=== PATIENT | female | born 1940 | race Caucasian/White ===

== ENCOUNTER → 2020-08-31 06:39 | Outpatient (CLI) | payer MEDICARE, SELFPAY ==
[2020-08-26 08:31] VITALS: BMI 36.2
--- NOTE | 2020-08-31 06:42 | ECHOCS_ITS ---
Reason For Study: DYSPNEA Procedure This was a 2D Doppler, Color Flow transthoracic echocardiogram. The study was technically difficult. Contrast injection was performed. Exam performed in department. Left Ventricle Normal LV size. Left ventricular systolic function is normal. The estimated ejection fraction is 50 %. Transmitral and pulmonary venous doppler flow suggestive of impaired relaxation of left ventricle. Mid-anteroseptal : Hypokinetic. Basal inferoseptal: Hypokinetic. The rest of the wall segments are normal. Right Ventricle Normal RV size. Normal systolic function. Atria Normal left atrium. Normal right atrium. Mitral Valve Normal mitral valve. Tricuspid Valve The tricuspid valve is not well visualized. Aortic Valve Trisinus/trileaflet aortic valve. Pulmonic Valve The pulmonic valve is not well visualized. Great Vessels Normal aortic root. Pericardium/Pleural No pericardial effusion. Medication Diluted definity 4.5ml given slow IV push to enhance endocardial definition. MMode/2D Measurements & Calculations LVIDd: 4.0 cm IVSd: 1.1 cm LVOT diam: 1.9 cm LVIDs: 2.8 cm LVPWd: 1.1 cm RVDd: 3.2 cm FS: 30.4 % LVOT area: 3.0 cm2 Ao root diam: 3.1 cm LAV(MOD-bp): 29.8 ml LVAd ap4: 28.7 cm2 LAV(MOD-bp) Indexed: 16.1 ml/m2 EDV(MOD-sp4): 84.0 ml LAV(MOD-sp2): 34.5 ml EDV(sp4-el): 93.4 ml LAV(MOD-sp4): 24.0 ml LVAs ap4: 18.6 cm2 ESV(MOD-sp4): 44.1 ml ESV(sp4-el): 47.6 ml EF(MOD-sp4): 47.5 % EF(sp4-el): 49.1 % SV(MOD-sp4): 39.9 ml SV(sp4-el): 45.8 ml LA A4 area: 10.6 cm2 LA dimension(2D): 3.3 cm RA A4 area: 7.3 cm2 Time Measurements MV dec time: 0.19 sec Doppler Measurements & Calculations MV E max israel: 77.2 cm/sec Lat Peak E' [place]: 3.0 cm/sec Med Peak E' [place]: 3.2 cm/sec MV A max israel: 121.2 cm/sec E/E' lat: 26.0 E/E' med: 23.9 MV E/A: 0.64 MV V2 max: 132.0 cm/sec Ao V2 max: 212.3 cm/sec LV V1 max: 100.0 cm/sec MV max P.0 mmHg Ao max P.0 mmHg LV V1 max P.0 mmHg MV V2 mean: 77.0 cm/sec Ao V2 mean: 151.6 cm/sec LV V1 mean P.1 mmHg MV mean P.7 mmHg Ao mean P.2 mmHg LV V1 mean: 67.9 cm/sec MV V2 VTI: 29.9 cm Ao V2 VTI: 38.9 cm LV V1 VTI: 18.9 cm MVA(VTI): 1.9 cm2 CEZAR(I,D): 1.4 cm2 CEZAR(V,D): 1.4 cm2 SV(LVOT): 55.9 ml TR max israel: 263.7 cm/sec MV P1/2t-pr_phl: 115.5 msec TR max P.8 mmHg ECHO/Echo Complete W/ Contrast Interpretation Summary Left ventricular systolic function is normal. The estimated ejection fraction is 50 %. Normal LV size. Transmitral and pulmonary venous doppler flow suggestive of impaired relaxation of left ventricle Contrast injection was performed. Ordering Physician: Eliot Choi Referring Physician: DENIZ MCCALLUM Performed By: Milla Guzman, SALINA, RVT
--- NOTE | 2020-08-31 17:54 | STRESSREP_ITS ---
Stress Test Report Pharmacologic myocardial perfusion stress test. 79-year-old lady with a history of left bundle branch block for left hip surgery. Stress protocol: Resting EKG demonstrates normal sinus rhythm with a rate of 78 bpm left bundle branch block is noted resting blood pressure is 142/82 mmHg. 0.4 mg of regadenoson was infused per usual protocol followed by rapid intravenous saline flush injection continuous EKG monitoring was performed. The maximum heart rate attained was 104 bpm which was 72% of max impacted heart rate the maximum workl oad was 1 metabolic equivalent. At rest there were no ST or T wave changes noted to suggest abnormal flow reserve. At peak infusion no ST changes were noted to suggest abnormal flow reserve. The final blood pressure was 138/78 mmHg. Myocardial perfusion protocol. 10.6 mCi of technetium 99m sestamibi was injected at rest. 0.4 mg of regadenoson was infused per usual protocol. At peak infusion 33.0 mCi of technetium 99m sestamibi was infused per protocol. Stress and resting images were reconstructed and compared in the short axis vertical long and horizontal long axis. Gated images were also obtained per Diffusion SPECT analysis: Review of the stress images demonstrate normal uptake of tracer noted in all areas of the myocardium. The resting images similarly demonstrate normal uptake of tracer noted in all areas of the myocardium. No areas of reversibility are noted to suggest ischemia no previous infarct is noted. Gated SPECT analysis: The gated ejection fraction is noted to be 56%. Conclusion: Normal pharmacologic myocardial perfusion stress test. Preserved ejection fraction.
== END ==
PROVIDERS: PCP Family Medicine; Referring Provider Internal Medicine Cardiovascular Disease; Visit Provider Internal Medicine Cardiovascular Disease
DX: R06.00 Dyspnea, unspecified (principal); R06.02 Shortness of breath
CPT/HCPCS: 78452; 93017; 93306; A9500; Q9957; A4216; C8929; J2785

== ENCOUNTER → 2021-04-19 09:19 | Outpatient (CLI) | payer MEDICARE, SELFPAY ==
[2021-04-19 10:05] LABS: Absolute Lymphocyte Count 1.84 X10^3/uL (0.83-4.51); Absolute Neutrophil Count 4.6 X10^3/uL (2.0-7.7); Basophil# 0.06 X10^3/uL; Basophil% 0.8 % (0-1); Eosinophil# 0.17 X10^3/uL; Eosinophils% 2.3 % (0-5); Hematocrit 42.6 % (37-47); Hemoglobin 14.4 g/dL (12.0-15.0); Lymphocyte # 1.84 X10^3/ul (0.83-4.51); Mean Corp Hgb Conc 33.8 g/dL (32-36); Mean Corpuscular Hgb 28.5 pg (27.0-32.0); Mean Corpuscular Volume 84.4 fL (81-99); Mean Platelet Vol. 9.2 fl (6.2-12.0); Monocyte# 0.63 X10^3/uL; Monocyte% 8.6 % (0-10); NRBC Flagged by Analyzer 0 % (0-5); Neutrophil # 4.64 X10^3/uL (2.7-7.7); Neutrophil % 63.2 % (47-70); Platelet Count 400 K/mm3 (150-450); RBC Distribution Width CV 12.6 % (11.6-14.6); RBC Distribution Width SD 38.4 fl (35.1-43.9); Red Blood Count 5.05 M/mm3 (4.2-5.4); White Blood Count 7.4 K/mm3 (4.4-11.0)
[2021-04-19 10:29] LABS: BNP,B-Type NATRIURETIC PEPTIDE 49.3 pg/mL (0-100)
[2021-04-19 10:37] LABS: Anion Gap 8 (5-15); BUN 17 mg/dL (7-18); BUN/Creat Ratio 21.2 RATIO (10-20); Calcium,Total 9.9 mg/dL (8.5-10.1); Chloride 107 mmol/L (98-107); EST Glomerular Filtration Rate 74 mL/min (>60); Est Glom Filt Rate - Afr Amer 89 mL/min (>60); Glucose 107 mg/dL (74-106); Potassium 3.9 mmol/L (3.5-5.1); Sodium Level 138 mmol/L (136-145)
== END ==
PROVIDERS: PCP Family Medicine; Referring Provider Nurse Practitioner Family; Visit Provider Nurse Practitioner Family
DX: I10 Essential (primary) hypertension (principal); R07.9 Chest pain, unspecified; R06.02 Shortness of breath
CPT/HCPCS: 36415; 80048; 83880; 85025

== ENCOUNTER → 2021-05-13 12:31 | Outpatient (CLI) | payer MEDICARE, SELFPAY ==
--- NOTE | 2021-05-13 12:34 | CT_ITS ---
EXAM: CT CHEST WITH INTRAVENOUS CONTRAST CLINICAL INDICATION: Chest pain -- OVER READ ONLY TECHNIQUE: Helically acquired images were obtained of the chest with intravenous contrast. This CT exam was performed using one or more of the following dose reduction techniques: automated exposure control, adjustment of the mA and/or kV according to patient size, and/or use of iterative reconstruction technique. This report was created using [employer] report generation technology. CONTRAST: IV 50mL [id number] COMPARISON: None. FINDINGS: LUNGS AND PLEURAL SPACES: 4 mm noncalcified nodule in the anterior right lower lobe on image 12 of series 4. Fleischner Society Guidelines (MacMahon, et al. Radiology 2017; 284(1):228-43) suggest the following. For low-risk patients, no follow-up is necessary. For high-risk patients (smoking history or other known risk factors) an optional chest CT at 12 months could be performed. No pleural effusion or thickening. No pneumothorax. HEART: Cardiac portion of the exam read by cardiology service. This report represents Overread noncardiac portion the exam. MEDIASTINUM: Unremarkable. No mediastinal or hilar adenopathy. Esophagus is unremarkable. No hiatal hernia. THYROID: Unremarkable. No thyroid lesions. BONES/JOINTS: Unremarkable. No suspicious lytic or blastic abnormality. VASCULATURE: Unremarkable. Thoracic aorta is non-dilated. No thoracic aortic dissection. No obvious central pulmonary embolism although this study was not performed with the pulmonary embolism protocol. CT/Limited Chest CT w/CCTA IMPRESSION: 4 mm noncalcified nodule in the anterior right lower lobe on image 12 of series 4. Fleischner Society Guidelines (MacMahon, et al. Radiology 2017; 284(1):228-43) suggest the following. For low-risk patients, no follow-up is necessary. For high-risk patients (smoking history or other known risk factors) an optional chest CT at 12 months could be performed. Electronically Signed: Saul Raphael MD ([place]) at 16:19 EST , Service support ,
[2021-05-13 12:43] VITALS: BP 167/80; PULSE 89; RESP 18; TEMP 36.8; O2SAT 100; BMI 32.0
[2021-05-13 13:00] VITALS: BP 148/73; PULSE 79
[2021-05-13] MEDS: Metoprolol Tartrate 5 MG/5 ML Vial IV ×2 (13:00→13:16)
[2021-05-13 13:06] VITALS: BP 137/66; PULSE 63; RESP 14; O2SAT 97
[2021-05-13 13:15] VITALS: BP 137/69; PULSE 69
[2021-05-13] MEDS: Nitroglycerin SL (ED/IMG/CATH) 0.4 MG TABLET SL (13:15)
[2021-05-13 13:16] VITALS: BP 137/69; PULSE 71
[2021-05-13 13:28] VITALS: BP 109/48; PULSE 63; RESP 16; O2SAT 97
--- NOTE | 2021-05-13 13:33 | NURSING ---
PT DENIES DIZZINESS. AMBULATES WITHOUT DIFFICULTY TO WAITING ROOM TO MEET . DENIES QUESTIONS OR FURTHER NEEDS.
--- NOTE | 2021-05-16 08:54 | CCTA_ITS ---
CCTA w/Cont Coronary Arteries Date of Study:: 05/13/21 Chest pain After procedure was explained to the patient informed consent was obtained. The patient was then brought to the radiology suite. Antecubital IV was placed. Appropriate gating was established. 100 cc of intravenous contrast was then injected in 0.625 mm slices were obtained and reconstructed. Motion artifact was noted to be minimal. LEFT MAIN CORONARY ARTERY: The above arose from the left coronary cusp and was noted to be normal and free of any calcification [] LEFT ANTERIOR DESCENDING CORONARY ARTERY: The above was a large vessel which coursed and wrapped around the apex of the left ventricle without any significant stenosis noted [] LEFT CIRCUMFLEX CORONARY ARTERY: Mild disease was noted proximally but no high- grade stenosis was noted. Motion artifact was noted in this vessel. [] RIGHT CORONARY ARTERY: Large dominant vessel was noted with no high-grade stenosis present. [] CT angio gram of the chest performed with no evidence of high-grade stenosis present. No obvious coronary calcification noted.
== END ==
PROVIDERS: PCP Family Medicine; Referring Provider Nurse Practitioner Family; Visit Provider Nurse Practitioner Family
DX: R07.9 Chest pain, unspecified (principal); R06.09 Other forms of dyspnea
CPT/HCPCS: 75574; 76380; 96374; Q9967

== ENCOUNTER → 2022-09-13 | Outpatient (CLI) | payer MEDICARE, SELFPAY ==
[2022-09-13 09:58] LABS: Hematocrit 44.6 % (37-47); Hemoglobin 14.8 g/dL (12.0-15.0); Mean Corp Hgb Conc 33.2 g/dL (32-36); Mean Corpuscular Hgb 28.5 pg (27.0-32.0); Mean Corpuscular Volume 85.9 fL (81-99); Mean Platelet Vol. 9.1 fl (6.2-12.0); Platelet Count 395 K/mm3 (150-450); RBC Distribution Width CV 12.9 % (11.6-14.6); Red Blood Count 5.19 M/mm3 (4.2-5.4); White Blood Count 9.1 K/mm3 (4.4-11.0)
[2022-09-13 10:31] LABS: Anion Gap 5 (5-15); BUN 23 mg/dL (7-18); BUN/Creat Ratio 24.4 RATIO (10-20); Calcium,Total 9.7 mg/dL (8.5-10.1); Chloride 104 mmol/L (98-107); Creatinine, Serum 0.94 mg/dL (0.55-1.02); EST Glomerular Filtration Rate 61 mL/min (>60); Est Glom Filt Rate - Afr Amer 74 mL/min (>60); Glucose 107 mg/dL (74-106); Potassium 4.3 mmol/L (3.5-5.1); Sodium Level 136 mmol/L (136-145); T4 Total, Thyroxin 11.2 ug/dL (4.8-13.9); Thyroid Stim Hormone (TSH) 2.36 uIU/mL (0.358-3.74)
== END | disposition home or self-care (01) ==
PROVIDERS: PCP Family Medicine; Visit Provider Nurse Practitioner Family
DX: R42 Dizziness and giddiness (principal); R00.0 Tachycardia, unspecified; R06.00 Dyspnea, unspecified; R23.2 Flushing; E03.9 Hypothyroidism, unspecified; I44.7 Left bundle-branch block, unspecified
CPT/HCPCS: 36415; 80048; 83735; 84436; 84443; 85027; 93225; 93226

== ENCOUNTER → 2022-10-04 | Outpatient (CLI) | payer MEDICARE, SELFPAY ==
--- NOTE | 2022-10-04 12:38 | ECHOCS_ITS ---
Reason For Study: Lightheaded Procedure This was a 2D Doppler, Color Flow transthoracic echocardiogram. The study was technically difficult. Contrast injection was performed. Exam performed in department. Left Ventricle Normal left ventricle. Left ventricular systolic function is normal. The estimated ejection fraction is 55 %. No regional wall motion abnormalities noted. Right Ventricle Normal right ventricle. Atria Normal left atrium. Normal right atrium. Mitral Valve Normal mitral valve. Tricuspid Valve Normal tricuspid valve. Mild (1+) tricuspid valve insufficiency. Pulmonary artery systolic pressure is 40 mmHg. Aortic Valve Trisinus/trileaflet aortic valve. Mild focal aortic valve calcification. Peak aortic valve gradient 18 mmHg. Mean aortic valve gradient 9 mmHg. Pulmonic Valve The pulmonic valve is not well visualized. Great Vessels Normal aortic root. The pulmonary artery is normal size. Normal inferior vena cava. Pericardium/Pleural No pericardial effusion. Medication 22 gauge I.V. with prn adaptor inserted into left arm. Diluted definity 2ml given slow IV push to enhance endocardial definition. MMode/2D Measurements & Calculations LVIDd: 3.9 cm IVSd: 1.1 cm LVOT diam: 2.0 cm LVIDs: 2.7 cm LVPWd: 1.0 cm RVDd: 3.5 cm FS: 31.2 % LVOT area: 3.0 cm2 Ao root diam: 2.9 cm LAV(MOD-bp): 41.7 ml LA A4 area: 12.2 cm2 LA dimension: 3.6 cm LAV(MOD-bp) Indexed: 22.4 ml/m2 LAV(MOD-sp2): 47.8 ml LAV(MOD-sp4): 29.2 ml RA A4 area: 9.5 cm2 Time Measurements MV dec time: 0.21 sec Doppler Measurements & Calculations MV E max israel: 97.1 cm/sec Lat Peak E' [place]: 4.4 cm/sec Med Peak E' [place]: 6.3 cm/sec MV A max israel: 123.6 cm/sec E/E' lat: 22.2 E/E' med: 15.4 MV E/A: 0.79 MV V2 max: 138.8 cm/sec MV P1/2t max israel: 106.1 cm/sec Ao V2 max: 206.8 cm/sec MV max P.7 mmHg MV P1/2t: 71.5 msec Ao max P.2 mmHg MV V2 mean: 76.8 cm/sec MV dec slope: 434.7 cm/sec2 Ao V2 mean: 141.4 cm/sec MV mean P.8 mmHg Ao mean P.7 mmHg MV V2 VTI: 28.5 cm MVA(P1/2t): 3.1 cm2 Ao V2 VTI: 48.1 cm MVA(VTI): 2.1 cm2 AV (velocity ratio): 0.40 CEZAR(I,D): 1.2 cm2 CEZAR(V,D): 1.4 cm2 LV V1 max: 92.5 cm/sec SV(LVOT): 58.7 ml PA V2 max: 116.9 cm/sec LV V1 max P.4 mmHg LV V1 mean P.7 mmHg LV V1 mean: 59.3 cm/sec LV V1 VTI: 19.4 cm TR max israel: 298.2 cm/sec TR max P.6 mmHg ECHO/Echo Complete W/ Contrast Interpretation Summary Normal left ventricle. Left ventricular systolic function is normal. The estimated ejection fraction is 55 %. No regional wall motion abnormalities noted. Contrast injection was performed. Ordering Physician: Gregory Bliss Referring Physician: Gregory Bliss Performed By: Lamin Moody RCS
== END | disposition home or self-care (01) ==
LOC: CVS 12:37
PROVIDERS: PCP Family Medicine; Referring Provider Nurse Practitioner Family; Visit Provider Nurse Practitioner Family
DX: R07.9 Chest pain, unspecified (principal); R42 Dizziness and giddiness; I44.7 Left bundle-branch block, unspecified
CPT/HCPCS: 93306; Q9957; A4216; C8929

== ENCOUNTER → 2022-10-26 | Outpatient (CLI) | payer MEDICARE, SELFPAY ==
--- NOTE | 2022-10-26 13:40 | CDU_ITS ---
Reason For Study: Lightheadedness Rt. Velocities/BP Lt. Velocities/BP Prox CCA 74/11.6 cm/sec. Prox CCA 76.8/15.4 cm/sec. Mid CCA 80.6/14.5 cm/sec. Mid CCA 59.8/14.5 cm/sec. Dist CCA 74.9/13.5 cm/sec. Dist CCA 63.6/12.6 cm/sec. Prox ICA 80.6/11.3 cm/sec. Prox ICA 55.1/16.3 cm/sec. Mid ICA 68.5/13.5 cm/sec. Mid ICA 83.4/23 cm/sec. Dist ICA 86.1/17.9 cm/sec. Dist ICA 80.6/22 cm/sec. Rt. ICA/CCA = 1.15. Lt. ICA/CCA = 1.31. Prox ECA 109.1/10.2 cm/sec. Prox ECA 96.1/9 cm/sec. Rt. Vert. 48.5/9.7 cm/sec. Lt. Vert. 37.1/10.7 cm/sec. Right Extracranial There is intimal thickening but no significant atherosclerotic plaque noted in the right common carotid artery. There is intimal thickening but no significant atherosclerotic plaque noted in the right internal carotid artery. There is heterogeneous, smooth atherosclerotic plaque noted in the right external carotid artery. Antegrade flow is noted in the right vertebral artery. Left Extracranial There is intimal thickening but no significant atherosclerotic plaque noted in the left common carotid artery. There is homogeneous, smooth atherosclerotic plaque noted in the left internal carotid artery. There is intimal thickening but no significant atherosclerotic plaque noted in the left external carotid artery. Antegrade flow is noted in the left vertebral artery. Procedure Carotid Duplex [id number]. This is a Carotid Duplex examination using B-mode, color flow and specral Doppler. Exam performed in department. VL/Carotid Duplex Ultrasound Interpretation Summary Normal right extracranial internal carotid. Mild (<50%) stenosis left extracranial internal carotid. Patent and antegrade vertebrals bilaterally. Ordering Physician: Gregory Bliss Referring Physician: Wilfredo Doan MD Performed By: Kimberly Edwards RVT
== END | disposition home or self-care (01) ==
LOC: CVS 13:39
PROVIDERS: PCP Family Medicine; Referring Provider Nurse Practitioner Family; Visit Provider Nurse Practitioner Family
DX: R42 Dizziness and giddiness (principal); I44.7 Left bundle-branch block, unspecified; I65.22 Occlusion and stenosis of left carotid artery
CPT/HCPCS: 93880